=== PATIENT | male | born 1945 | race Caucasian/White ===

== ENCOUNTER 2021-08-13 15:16 | Emergency (ER) | payer MEDICARE ==
[~2021-08-13] VITALS: Ht 177.8 cm; Wt 50.0 kg
[~2021-08-13 15:16] MED LIST: AMAN137C PO; AMLO-257 PO; ASPI-989 PO; CARB100I; CHOL500013 PO; DOCU-270 PO; FINA-27 PO; LEVO112T4 PO; LORA-999 PO; LOSA-370 PO; MELA5TAB40 PO; METO25 PO; MIRT30 PO; MULT-1239 PO; NACL1 PO; OMEP20 PO; SENN8.6T90 PO; VENL-67 PO
[2021-08-13] MEDS: ACETAMINOPHEN 325 MG TABLET PO ONE (16:08)
[2021-08-13 17:31] VITALS: BP 155/118
== END 2021-08-13 17:51 | disposition home or self-care (01) ==
LOC: EMS 15:19
DX: S70.02XA Contusion of left hip, initial encounter (principal); S09.90XA Unspecified injury of head, initial encounter; I10 Essential (primary) hypertension; Z79.82 Long term (current) use of aspirin; Z79.899 Other long term (current) drug therapy; W18.39XA Other fall on same level, initial encounter; Y93.89 Activity, other specified; Y92.89 Other specified places as the place of occurrence of the external cause; Y99.8 Other external cause status
CPT/HCPCS: 70450; 73503; 99284